=== PATIENT | male | born 1945 | race Caucasian/White ===

== ENCOUNTER 2021-09-30 06:14 | Day surgery (SDC) | payer OTHER ==
[~2021-09-30] VITALS: Ht 172.7 cm; Wt 89.8 kg
[~2021-09-30 06:14] MED LIST: LOSARTAN-HCTZ1 EACH PO
== END 2021-09-30 13:10 | disposition home or self-care (01) ==
LOC: CIR.AMB 06:14
PROVIDERS: ATTEND Orthopaedic Surgery
DX: M75.122 Complete rotator cuff tear or rupture of left shoulder, not specified as traumatic (principal); M75.22 Bicipital tendinitis, left shoulder; Z20.822 Contact with and (suspected) exposure to COVID-19; I10 Essential (primary) hypertension; F17.210 Nicotine dependence, cigarettes, uncomplicated; Z86.16 Personal history of COVID-19; M24.112 Other articular cartilage disorders, left shoulder